=== PATIENT | female | born 2000 ===

== ENCOUNTER 2021-02-26 05:46 | Emergency (ER) | payer SELFPAY ==
[2021-02-26 06:02] VITALS: BP 132/89
[2021-02-26 06:37] LABS: Bilirubin,Urine NEG (Negative); Blood,Urine MOD (Negative); Color,Urine Yellow (Yellow); Mucus,Urine FEW /HPF; Urobilinogen,Urine < 2.0 mg/dL (<2.0)
== END 2021-02-26 12:34 | disposition left against medical advice (07) ==
LOC: ED 05:46
DX: R11.0 Nausea (principal); Z53.21 Procedure and treatment not carried out due to patient leaving prior to being seen by health care provider
CPT/HCPCS: 81001